=== PATIENT | female | born 1995 | race Caucasian/White ===

== ENCOUNTER 2020-07-22 02:24 | Observation (INO) | payer OTHER ==
[2020-07-22 03:08] VITALS: BMI 29.2
[2020-07-22] MEDS ORDERED: MORPHINE 4 MG/ML SYR IV PRN (03:13)
[2020-07-22] MEDS ORDERED: ONDANSETRON 4 MG/2 ML VIAL IV PRN (03:13)
[2020-07-22] MEDS ORDERED: Ringers Lactate 1,000 ML IV SCH (04:00)
[2020-07-22] MEDS ORDERED: LIDOCAINE JELLY 2%- 5 ML TUBE ONE (07:53)
[2020-07-22] MEDS ORDERED: LIDOCAINE JELLY 2%- 5 ML TUBE TOP ONE (08:00)
--- NOTE | 2020-07-22 08:06 | P.HP ---
Date of Service: 07/22/20 PC: This 24-year-old female presents emergency room with severe abdominal pain for diagnosis and treatment. HPC: Patient has had intermittent pain over the last year off and on in the upper portion of her abdomen. Yesterday however had right lower quadrant abdominal pain, became very severe, with nausea and vomiting. Hurts when she presses on that area or when she walks. PMH: Negative PSHx: Negative SOC: Denies any allergies SYS REVIEW: No cough, wheeze, shortness of breath. No chest pain or palpitations. Denies any urinary complaints O/E awake alert stable HEENT: Within normal limits Chest: Air entry equal bilaterally ABD: Tender with guarding in the right lower quadrant LOCO: Intact DATA: CT scan consistent with clinical findings of acute appendicitis IMPRESSION: Acute abdomen with appendicitis PLAN: In the operating room for laparoscopic possible open appendectomy. The risks of this procedure have been discussed. The possibility of bleeding, infection, injury to bowel and surrounding structures has been outlined. The possible need for open surgery was described. She understands and wants to proceed.
[2020-07-22] MEDS ORDERED: propofoL 200 MG/20 ML VIAL IV ONE (08:12)
[2020-07-22] MEDS ORDERED: LIDOCAINE 2% MPF 5 ML VIAL ONE (08:12)
[2020-07-22] MEDS ORDERED: ROCURONIUM 50 MG/5 ML VIAL IV ONE (08:15)
[2020-07-22] MEDS ORDERED: FENTANYL CITR 100 MCG/2 ML ONE ×2 (08:24→09:18)
[2020-07-22] MEDS ORDERED: KETOROLAC 30 MG/ML INJ ONE (08:38)
[2020-07-22] MEDS ORDERED: dexAMETHasone 4 MG/ML VIAL ONE (08:38)
[2020-07-22] MEDS ORDERED: GLYCOPYRROLATE 0.2 MG/ML SYR ONE (08:51)
[2020-07-22] MEDS ORDERED: NEOSTIGMINE 1 MG/ML -5 ML ONE (08:51)
[2020-07-22] MEDS ORDERED: CEFOXITIN SODIUM 1 GM/VIAL IVPB SCH (09:00)
[2020-07-22] MEDS ORDERED: CEFOXITIN/SWI 1gm 1 GM/10 ML SYR IV SCH (09:00)
[2020-07-22] MEDS ORDERED: HYDROCODONE/APAP 7.5/325 MG TAB PO PRN (09:55)
--- NOTE | 2020-07-22 10:01 | P.OP ---
Preoperative diagnosis: Acute abdomen Postoperative diagnosis: Acute appendicitis Primary procedure: Laparoscopic appendectomy Anesthesia: General Estimated blood loss: Less than 10 cc Specimen: 1 appendix Findings: Acute appendicitis Operative Technique: The patient was brought to the operating room, placed supine on the table. After the induction of adequate general endotracheal anesthesia, the area of the abdomen was prepped with a DuraPrep solution, and she was draped in the usual aseptic manner. A subumbilical incision was made. This was brought down through the skin and subcutaneous tissue. The Visiport was used to enter the peritoneal cavity and create a pneumoperitoneum to approximately 12 mm of mercury. Under direct vision a 5 mm trocar was placed in the lower midline and another 5 mm in the right upper quadrant. The patient was then positioned in Trendelenburg and rolled to the left side. We were able to visualize right lower quadrant. We could see an acutely inflamed appendix laying in the true pelvis. The cecum was brought up out of pelvis so we could have access to the appendix. It was grasped in the midbody with a grasper. The appendix was then gently dissected from the surrounding structures. The junction of the appendix with the with the cecum was identified. An opening was made in the mesentery of the appendix. The 10 mm trocar was now converted to a 12 with the camera moved to the right upper port with a 5 mm view. The linear Stapler was introduced into the peritoneal cavity. It was placed across the base of the appendix and fired. A vascular reload was then placed into the Stapler. The mesentery of the appendix was then taken down. The appendix having been was placed into an Endo-Catch, brought out through the umbilical port site. Attention was turned back towards the right lower quadrant. The area was gently irrigated with the saline solution. The effluent was aspirated. 0.25% Marcaine was aerosolize into the right lower quadrant. We also did a Geraldo block with 0.25% Marcaine under direct vision. Attention was turned towards the umbilical trocar. Using the endo-close absorbable sutures were placed to close the defect. The patient was now returned to the neutral position on the OR table. The pneumoperitoneum was collapsed, the umbilical sutures tied, and mary applied to the skin. At the end of the procedure the patient was in stable condition and sent to the recovery room. Needle sponge and instrument count were correct. 1 specimen was sent for histopathology. Sterile dressings had been applied. Complications: None Transferred to: Recovery Room Condition: Good
[2020-07-22] MEDS ORDERED: PROMETHAZINE INJ 25 MG/ML AMP ONE (10:04)
[2020-07-22 10:06] VITALS: O2SAT 100
[2020-07-22] MEDS: MORPHINE 4 MG/ML SYR IV PRN ×2 (11:44→18:11)
[2020-07-22 16:55] VITALS: BP 101/67; TEMP 98.1
== END 2020-07-22 19:35 | disposition home or self-care (01) ==
LOC: 2ND 02:24
PROVIDERS: ADMIT Surgery; ATTEND Surgery
PROC: 0DTJ4ZZ Resection of Appendix, Percutaneous Endoscopic Approach (ICD-10-PCS; principal; 2020-07-22 08:00)
DX: K35.80 Unspecified acute appendicitis (principal)
CPT/HCPCS: 44970; 88304; 94010; J2704; J1100; J2550; J3010 ×2; J2710; G0378 ×3; J7120; G0379